=== PATIENT | male | born 1945 | race Caucasian/White ===

== ENCOUNTER 2016-12-26 15:24 | Emergency (ER) | payer MEDICARE, OTHER ==
[~2016-12-26] VITALS: Ht 172.7 cm; Wt 92.2 kg
[~2016-12-26 15:24] MED LIST: DIAZ5 PO; ESOM1CAP16 PO; METH750T2 PO; OXYC10TA8 PO; TERA2CAP3 PO
[2016-12-26 15:37] VITALS: BP 115/75; PULSE 74; RESP 16; TEMP 98.4; O2SAT 94
--- NOTE | 2016-12-26 16:05 | PD ---
HPI Chief Complaint: Fall Time Seen by Provider: 16:01 Travel History International Travel<30 days: No Contact w/Intl Traveler<30days: No Traveled to known affect area: No History of Present Illness HPI 71-year-old male with history of right total knee replacement presents to the ED for evaluation of 5/10 right knee pain. Onset approximately one hour ago when the patient lost his balance stepping off the curb and fell onto his right knee. States that during the course the fall he tried to catch himself with the right hand and sustained a few lacerations of the skin. He has been ambulatory since the accident. He was able to drive himself to the emergency room. He denies numbness, tingling, weakness or limitations to range of motion. He does state that flexion elicits pain. Patient states tetanus immunization is up-to-date. He declines pain medication. 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) Cardiovascular Problems: Yes Diminished Hearing: No Endocrine: No Gastrointestinal Disorders: Yes (BARRETTS ESPHAGITIS) Genitourinary: Yes (ENLARGED PROSTATE) Hepatitis: No Hiatal Hernia: Yes Hypertension: No Immune Disorder: No Inguinal Hernia: Yes (x 5) Medical other: No Musculoskeletal: Yes (SEVERE NECK PAIN--DOES TRACTION ,ARTHRITIS) Psychiatric: No Reproductive: No Respiratory: Yes (BARRETTJaz) Influenza Vaccination: Yes Past Surgical History Abdominal Surgery: Yes (CHOLYCYSTECTOMY, 5 HERNIA SURGERIES) Body Medical Devices: MESH IN ABDOMEN Cardiac Surgery: No Cholecystectomy: Yes Ear Surgery: No Endocrine Surgery: No Eye Surgery: No Genitourinary Surgery: No Joint Replacement: Yes (RIGHT KNEE TKA) Neurologic Surgery: No Oral Surgery: No Thoracic Surgery: No Other Surgery: Yes (sigmoid) Social History Alcohol Use: No Tobacco Use: No (FORMER) Substance Use: No Allergies-Medications (Allergen,Severity, Reaction): Coded Allergies: Codeine (Verified Allergy, Severe, SOB, 12/26/16) SWEATING Reported Meds & Prescriptions Reported Meds & Active Scripts Active Reported Nexium (Esomeprazole DR) 40 Mg Capdr 40 Mg PO BID Oxycodone (Oxycodone HCl) 10 Mg Tab 10 Mg PO BID Terazosin (Terazosin HCl) 2 Mg Cap 8 Mg PO HS Review of Systems Except as stated in HPI: all other systems reviewed are Neg Physical Exam Narrative GENERAL: Well-nourished, well-developed white male in no acute distress.. SKIN: Focused skin assessment warm/dry. Right hand with 21-2 cm skin tears. HEAD: Normocephalic. EYES: No scleral icterus. No injection or drainage. NECK: Supple, trachea midline. No JVD or lymphadenopathy. CARDIOVASCULAR: Regular rate and rhythm without murmurs, gallops, or rubs. RESPIRATORY: Breath sounds equal bilaterally. No accessory muscle use. GASTROINTESTINAL: Abdomen soft, non-tender, nondistended. MUSCULOSKELETAL: No cyanosis, or edema. Focused right upper extremity exam: 2+ radial pulse. Chronic deformity and limited ROM of the fifth digit. Patient maintains full, active, painless range of motion of the other digits. Strong finger to thumb opposition. Sensation intact to light touch distally. Cap refill less than 2 seconds. Focused right lower extremity exam: 2+ DP pulse. Mild edema and tenderness to palpation of the anterior lateral aspect of the right knee. Patient is able to flex to 90 plus and straighten to 0. Veres/valgus stress testing elicits pain. Anterior drawer test elicits pain. Patient is able to flex and extend the ankle and wiggle the toes. Cap refill less than 2 seconds. Sensation intact to light touch distally. BACK: Nontender without obvious deformity. No CVA tenderness. Data Data Last Documented VS Vital Signs Date Time Temp Pulse Resp B/P Pulse Ox O2 Delivery O2 Flow Rate FiO2 12/26/16 15:37 98.4 74 16 115/75 94 Orders Knee, Complete (4vws) (12/26/16 15:54) Ice/Cold Pack (12/26/16 15:54) MDM Medical Decision Making Medical Screen Exam Complete: Yes Emergency Medical Condition: Yes Differential Diagnosis Skin tear versus abrasion versus laceration versus patellar fracture versus ligamentous injury versus musculoskeletal pain versus other Narrative Course 71-year-old male with history of right total knee replacement presents to the ED for evaluation of 5/10 right knee pain. Onset approximately one hour ago when the patient lost his balance stepping off the curb and fell onto his right knee. States that during the course the fall he tried to catch himself with the right hand and sustained a few lacerations of the skin. He has been ambulatory since the accident. He was able to drive himself to the emergency room. He denies numbness, tingling, weakness or limitations to range of motion. He does state that flexion elicits pain. Patient states tetanus immunization is up-to-date. He declines pain medication. Vitals reviewed. Physical exam reveals a white male in no acute distress. There are two 1 cm skin tears on the right hand. 2+ radial pulse. Chronic deformity and limited ROM of the fifth digit. Patient maintains full, active, painless range of motion of the other digits. Strong finger to thumb opposition. Sensation intact to light touch distally. Cap refill less than 2 seconds. Focused right lower extremity exam: 2+ DP pulse. Mild edema and tenderness to palpation of the anterior lateral aspect of the right knee. Patient is able to flex to 90 plus and straighten to 0. Veres/valgus stress testing elicits pain. Anterior drawer test elicits pain. Patient is able to flex and extend the ankle and wiggle the toes. Cap refill less than 2 seconds. Sensation intact to light touch distally. The patient's wounds were cleaned and dressed by the nursing staff. X-ray of the knee reveals no acute abnormality per radiology read. Patient was instructed to rest, ice, elevate the extremity, follow up with his orthopedist. He is instructed to monitor for signs of infection of the skin tears, return ad jaylon. He indicated understanding of instructions and is amenable to plan of care. He is stable and discharged home. Diagnosis Primary Impression: Musculoskeletal pain of right lower extremity Additional Impression: Skin tear of right hand without complication Qualified Code: S61.411A - Skin tear of right hand without complication, initial encounter Referrals: Orthopedist Patient Instructions: General Instructions, Musculoskeletal Pain (ED) Additional Instructions: Rest, ice, elevate the extremity. Apply ice no longer than 10-15 minutes per hour a few times a day. Take OTC ibuprofen or Tylenol as directed on the label for pain. Return to normal, gentle activity as tolerated. No running, climbing, jumping activities for the next few weeks. Follow up with orthopedist in one week. Return to the ED for any urgent or emergent medical condition. Disposition: 01 DISCHARGE HOME Condition: Stable Lilly Simpson Dec 26, 2016 16:05
[2016-12-26] MEDS ORDERED: OXYC-395 PO (16:07)
[2016-12-26] MEDS ORDERED: NEXI40CA PO (16:07)
[2016-12-26] MEDS ORDERED: TERA2CAP3 PO (16:07)
--- NOTE | 2016-12-26 17:06 | RADHPO ---
EXAM DATE/TIME: 12/26/2016 16:05 [facility] COMPARISON: No previous studies available for comparison. INDICATIONS : Fall, Complains of pain and swelling of right knee. MEDICAL HISTORY : None. SURGICAL HISTORY : Right total knee ENCOUNTER: Initial ACUITY: 1 day PAIN SCORE: 10/10 LOCATION: Right knee FINDINGS: 5 images of the right knee reveal a total knee prosthesis in good position. No fracture or dislocatio n observed. No joint effusion. Scattered calcified atherosclerotic plaque of the popliteal artery. CONCLUSION: No acute abnormality. Earnest Hagan Jr., MD on December 26, 2016 at 16:50 Board Certified Radiologist. This report was verified electronically.
[2016-12-26] MEDS ORDERED: ACETAMINOPHEN/HYDROcodone 325 MG/5 MG TAB PO ONE (17:45)
== END 2016-12-26 18:14 | disposition home or self-care (01) ==
LOC: PHEFT 15:24
DX: M25.561 Pain in right knee (principal); M79.1 Myalgia; S61.411A Laceration without foreign body of right hand, initial encounter; W10.1XXA Fall (on)(from) sidewalk curb, initial encounter
CPT/HCPCS: 73564; 99283

== ENCOUNTER → 2017-02-07 | Outpatient (CLI) | payer MEDICARE, OTHER ==
[~2017-02-07] MED LIST changes: -DIAZ5 PO; -ESOM1CAP16 PO; -METH750T2 PO; +NEXI40CA PO; +OXYC-395 PO; -OXYC10TA8 PO
[2017-02-07 09:16] LABS: AUTOMATED NEUTROPHIL # 2.9 TH/MM3 (1.8-7.7); BASOPHIL % 0.5 % (0.0-2.0); EOSINOPHIL # 0.2 TH/MM3 (0-0.4); EOSINOPHIL % 4.5 % (0.0-4.0); HEMATOCRIT 42.2 % (39.0-51.0); HEMO FLAGS DIFF FINAL; LYMPH % 29.4 % (9.0-44.0); LYMPHOCYTE # 1.6 TH/MM3 (1.0-4.8); MEAN CORPUSCULAR HEMOGLOBIN 29.7 PG (27.0-34.0); MONO % 11.4 % (0.0-8.0); NEUT % 54.2 % (16.0-70.0); PLATELET COUNT 156 TH/MM3 (150-450); RED BLOOD COUNT 4.68 MIL/MM3 (4.50-5.90); RED CELL DISTRIBUTION WIDTH 13.4 % (11.6-17.2); WHITE BLOOD COUNT 5.4 TH/MM3 (4.0-11.0)
== END ==
LOC: PLAB 07:34
PROVIDERS: ATTEND Family Medicine
DX: L03.119 Cellulitis of unspecified part of limb (principal)
CPT/HCPCS: 36415; 85025

== ENCOUNTER → 2017-03-17 | Outpatient (CLI) | payer MEDICARE, OTHER ==
[2017-03-17 09:29] LABS: ANION GAP 8 MEQ/L (5-15); BLOOD UREA NITROGEN 11 MG/DL (7-18); CHLORIDE 107 MEQ/L (98-107); GLOMERULAR FILTRATION RATE 87 ML/MIN (>89); GLUCOSE,FASTING 102 MG/DL (74-99); POTASSIUM 4.2 MEQ/L (3.5-5.1); SODIUM (NA) 141 MEQ/L (136-145)
[2017-03-17 16:34] LABS: HEMOGLOBIN A1a 0.8 %; HEMOGLOBIN A1b 1.7 %; HEMOGLOBIN LA1C 1.7 %; HEMOGLOBIN P3 3.4 %
== END ==
LOC: PLAB 06:54
PROVIDERS: ATTEND Family Medicine
DX: R73.09 Other abnormal glucose (principal)
CPT/HCPCS: 36415; 80048; 83036

== ENCOUNTER → 2017-03-26 | Outpatient (CLI) | payer MEDICARE, OTHER ==
[2017-03-26 09:40] LABS: AUTOMATED NEUTROPHIL # 4.5 TH/MM3 (1.8-7.7); BASOPHIL % 0.7 % (0.0-2.0); EOSINOPHIL # 0.1 TH/MM3 (0-0.4); EOSINOPHIL % 1.4 % (0.0-4.0); HEMATOCRIT 45.9 % (39.0-51.0); HEMO FLAGS DIFF FINAL; LYMPH % 20.9 % (9.0-44.0); LYMPHOCYTE # 1.3 TH/MM3 (1.0-4.8); MEAN CELL VOLUME 90.9 FL (80.0-100.0); MEAN CORPUSCULAR HEMOGLOBIN 29.6 PG (27.0-34.0); MEAN CORPUSCULAR HGB CONC 32.5 % (32.0-36.0); MONO % 6.8 % (0.0-8.0); NEUT % 70.2 % (16.0-70.0); PLATELET COUNT 183 TH/MM3 (150-450); RED BLOOD COUNT 5.04 MIL/MM3 (4.50-5.90); RED CELL DISTRIBUTION WIDTH 13.8 % (11.6-17.2); WHITE BLOOD COUNT 6.3 TH/MM3 (4.0-11.0)
[2017-03-26 09:45] LABS: BLOOD, URINE NEG (NEG); COMMENT (UR) CULT NOT INDICATED; CULTURE IF INDICATED CULT NOT INDICATED; GLUCOSE,URINE NEG (NEG); KETONE, URINE NEG (NEG); MUCUS URINE FEW /lpf (OCC); NITRITE,URINE NEG (NEG); PH, URINE 6.5 (5.0-8.5); URINE COLOR YELLOW (YELLW/STRAW)
[2017-03-26 10:13] LABS: ALT (GPT) 31 U/L (12-78); ANION GAP 7 MEQ/L (5-15); AST (GOT) 30 U/L (15-37); BICARBONATE 28.2 MEQ/L (21.0-32.0); BLOOD UREA NITROGEN 14 MG/DL (7-18); CHLORIDE 107 MEQ/L (98-107); GLOMERULAR FILTRATION RATE 84 ML/MIN (>89); GLUCOSE,FASTING 99 MG/DL (74-99); POTASSIUM 4.2 MEQ/L (3.5-5.1); SODIUM (NA) 142 MEQ/L (136-145)
[2017-03-26 10:23] LABS: ALKALINE PHOSPHATASE 104 U/L (45-117); HDL CHOLESTEROL 68.9 MG/DL (40.0-60.0); LDL CHOLESTEROL 105 MG/DL (0-99); TOTAL BILIRUBIN ADULT 0.7 MG/DL (0.2-1.0)
== END ==
LOC: PLAB 06:52
PROVIDERS: ATTEND Family Medicine
DX: K21.0 Gastro-esophageal reflux disease with esophagitis (principal); E78.2 Mixed hyperlipidemia; F41.8 Other specified anxiety disorders; R53.83 Other fatigue; N40.0 Benign prostatic hyperplasia without lower urinary tract symptoms; Z12.12 Encounter for screening for malignant neoplasm of rectum
CPT/HCPCS: 36415; 80053; 80061; 81001; 84153; 84443; 85025

== ENCOUNTER → 2017-12-03 | Outpatient (CLI) | payer MEDICARE, OTHER | LOC: PLAB 11:21 | PROVIDERS: ATTEND Family Medicine | DX: Z00.5 Encounter for examination of potential donor of organ and tissue (principal) | CPT/HCPCS: 36415; 86850; 86900; 86901 ==

== ENCOUNTER → 2018-02-02 | Outpatient (CLI) | payer MEDICARE, OTHER ==
[2018-02-02 10:17] LABS: AUTOMATED NEUTROPHIL # 3.7 TH/MM3 (1.8-7.7); BASOPHIL % 0.3 % (0.0-2.0); EOSINOPHIL # 0.2 TH/MM3 (0-0.4); EOSINOPHIL % 2.6 % (0.0-4.0); HEMATOCRIT 46.5 % (39.0-51.0); HEMO FLAGS DIFF FINAL; HEMOGLOBIN 15.8 GM/DL (13.0-17.0); LYMPH % 28.4 % (9.0-44.0); LYMPHOCYTE # 1.7 TH/MM3 (1.0-4.8); MEAN CELL VOLUME 91.2 FL (80.0-100.0); MEAN CORPUSCULAR HEMOGLOBIN 30.9 PG (27.0-34.0); MEAN CORPUSCULAR HGB CONC 33.9 % (32.0-36.0); MEAN PLATELET VOLUME 8.4 FL (7.0-11.0); MONO % 8.2 % (0.0-8.0); MONOCYTE # 0.5 TH/MM3 (0-0.9); NEUT % 60.5 % (16.0-70.0); PLATELET COUNT 177 TH/MM3 (150-450); RED CELL DISTRIBUTION WIDTH 13.2 % (11.6-17.2)
[2018-02-02 10:27] LABS: ALBUMIN 3.7 GM/DL (3.4-5.0); ALT (GPT) 32 U/L (12-78); ANION GAP 5 MEQ/L (5-15); AST (GOT) 29 U/L (15-37); BICARBONATE 31.7 MEQ/L (21.0-32.0); BLOOD UREA NITROGEN 13 MG/DL (7-18); CALCIUM 8.6 MG/DL (8.5-10.1); CHLORIDE 107 MEQ/L (98-107); CHOLESTEROL 177 MG/DL (120-200); CREATININE 1.08 MG/DL (0.60-1.30); GLOMERULAR FILTRATION RATE 67 ML/MIN (>89); GLUCOSE,FASTING 93 MG/DL (74-99); POTASSIUM 4.5 MEQ/L (3.5-5.1); SODIUM (NA) 144 MEQ/L (136-145); TRIGLYCERIDES 95 MG/DL (42-150)
[2018-02-02 10:29] LABS: ALKALINE PHOSPHATASE 96 U/L (45-117); CHOLESTEROL/ HDL RATIO 3.02 RATIO; HDL CHOLESTEROL 58.6 MG/DL (40.0-60.0); LDL CHOLESTEROL 99 MG/DL (0-99); TOTAL BILIRUBIN ADULT 0.5 MG/DL (0.2-1.0); TOTAL PROTEIN 7.1 GM/DL (6.4-8.2)
[2018-02-02 16:19] LABS: HEMOGLOBIN A1C 5.6 % (4.3-6.0); HEMOGLOBIN A1a 0.9 %; HEMOGLOBIN A1b 1.7 %; HEMOGLOBIN Ao 85.8 %; HEMOGLOBIN LA1C 1.8 %; HEMOGLOBIN P3 3.4 %
== END ==
LOC: PLAB 07:51
DX: Z00.00 Encounter for general adult medical examination without abnormal findings (principal); R73.09 Other abnormal glucose; E78.2 Mixed hyperlipidemia
CPT/HCPCS: 36415; 80053; 80061; 83036; 85025

== ENCOUNTER 2018-03-17 08:27 | Emergency (ER) | payer MEDICARE, OTHER ==
[~2018-03-17] VITALS: Ht 172.7 cm; Wt 96.0 kg
[2018-03-17 08:31] VITALS: BP 136/66; PULSE 75; RESP 16; TEMP 97.5; O2SAT 97
--- NOTE | 2018-03-17 09:38 | RADRPT ---
EXAM DATE: 03/17/2018 9:30 AM EDT AGE/SEX: 73 years / Male INDICATIONS: Fall on to right knee with swelling under patella. CLINICAL DATA: This is the patient's initial encounter. Patient reports that signs and symptoms have been present for 1 day and indicates a pain score of 3/10. MEDICAL/SURGICAL HISTORY: . Edema. Total knee replacement, right. COMPARISON: HPO, KNEE RIGHT COMPLETE (4VWS), 12/26/2016. . FINDINGS: Bony structures are intact and in normal alignment. There continues to be a right knee prosthesis in place. The hardware is grossly intact. There is no evidence of joint effusion. Compared to the prior study has been no significant changes. Vascular calcifications are again noted in the soft tissues. CONCLUSION: No acute fracture or joint dislocation. Stable examination. Electronically signed by: Marty Galvan MD 03/17/2018 9:37 AM EDT
--- NOTE | 2018-03-17 09:50 | PD ---
HPI Chief Complaint: Injury Time Seen by Provider: 08:48 Travel History International Travel<30 days: No Contact w/Intl Traveler<30days: No Traveled to known affect area: No History of Present Illness HPI 73-year-old male presented ER for evaluation of right knee injury. Patient fell and hurt his right knee and is here for further evaluation. Patient has artificial knee and is warranted could be misplaced. Patient was able to walk after the injury and has no pain on his knee. No open wounds, no edema or leg swelling or fever or chills. 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) Cardiovascular Problems: Yes Diminished Hearing: No Endocrine: No Gastrointestinal Disorders: Yes (BARRETTS ESPHAGITIS) Genitourinary: Yes (ENLARGED PROSTATE) Hepatitis: No Hiatal Hernia: Yes Hypertension: No Immune Disorder: No Inguinal Hernia: Yes (x 5) Medical other: No Musculoskeletal: Yes (SEVERE NECK PAIN--DOES TRACTION ,ARTHRITIS) Psychiatric: No Reproductive: No Respiratory: Yes (BARRETTS) Influenza Vaccination: No Past Surgical History Abdominal Surgery: Yes (CHOLYCYSTECTOMY, 5 HERNIA SURGERIES) Body Medical Devices: MESH IN ABDOMEN Cardiac Surgery: No Cholecystectomy: Yes Ear Surgery: No Endocrine Surgery: No Eye Surgery: No Genitourinary Surgery: No Joint Replacement: Yes (RIGHT KNEE TKA) Neurologic Surgery: No Oral Surgery: No Thoracic Surgery: No Other Surgery: Yes (sigmoid) Social History Alcohol Use: No Tobacco Use: No (FORMER) Substance Use: No Allergies-Medications (Allergen,Severity, Reaction): Coded Allergies: codeine (Unverified Allergy, Severe, SOB, 03/17/18) SWEATING Reported Meds & Prescriptions Reported Meds & Active Scripts Active Reported Nexium (Esomeprazole DR) 40 Mg Capdr 40 Mg PO BID Oxycodone (Oxycodone HCl) 10 Mg Tab 10 Mg PO BID Terazosin (Terazosin HCl) 2 Mg Cap 8 Mg PO HS Review of Systems Except as stated in HPI: all other systems reviewed are Neg Physical Exam Narrative GENERAL: Well-nourished, well-developed patient. SKIN: Focused skin assessment warm/dry. HEAD: Normocephalic. EYES: No scleral icterus. No injection or drainage. NECK: Supple, trachea midline. No JVD or lymphadenopathy. CARDIOVASCULAR: Regular rate and rhythm without murmurs, gallops, or rubs. RESPIRATORY: Breath sounds equal bilaterally. No accessory muscle use. GASTROINTESTINAL: Abdomen soft, non-tender, nondistended. MUSCULOSKELETAL: No cyanosis, or edema. BACK: Nontender without obvious deformity. No CVA tenderness. Data Data Last Documented VS Vital Signs Date Time Temp Pulse Resp B/P (MAP) Pulse Ox O2 Delivery O2 Flow Rate FiO2 03/17/18 08:47 Room Air 03/17/18 08:31 97.5 75 16 136/66 (89) 97 Orders Orders Knee, Complete (4vws) (03/17/18 ) Ed Discharge Order (03/17/18 09:47) [facility] Medical Decision Making Medical Screen Exam Complete: Yes Emergency Medical Condition: Yes Differential Diagnosis Fracture, dislocation, soft tissue swelling, lock assembler failure. Narrative Course Last 24 hours Impressions Knee X-Ray 03/17/18 0000 Signed Impressions: CONCLUSION: No acute fracture or joint dislocation. Stable examination. 73-year-old male here for evaluation of right knee injury. Patient has no pain , no gait problems, physical examination is unremarkable, vitals are stable patient is not in any pain. X-ray is negative for any acute findings. Patient stable to be discharged to follow-up with his primary care physician. I discussed with the patient that if her symptoms change or not improve to come to the ER for further evaluation. Patient understands and agrees to plan of care. Diagnosis Primary Impression: Right knee injury Qualified Codes: S89.91XA - Unspecified injury of right lower leg, initial encounter Additional Instructions: Follow-up with primary care physician and return to your symptoms change or do not improve. Disposition: 01 DISCHARGE HOME Condition: Stable Crispin Briceno MD Mar 17, 2018 09:50
[2018-03-17] MEDS ORDERED: RANI300T PO (16:04)
== END 2018-03-17 10:07 | disposition home or self-care (01) ==
LOC: PHED 08:27
DX: S89.91XA Unspecified injury of right lower leg, initial encounter (principal); W19.XXXA Unspecified fall, initial encounter; M19.90 Unspecified osteoarthritis, unspecified site; N40.0 Benign prostatic hyperplasia without lower urinary tract symptoms; Z96.651 Presence of right artificial knee joint; Z85.820 Personal history of malignant melanoma of skin; Z88.5 Allergy status to narcotic agent; M79.661 Pain in right lower leg; K22.70 Barrett's esophagus without dysplasia; K44.9 Diaphragmatic hernia without obstruction or gangrene; Z86.718 Personal history of other venous thrombosis and embolism; Z79.899 Other long term (current) drug therapy
CPT/HCPCS: 73564; 99283

== ENCOUNTER 2018-03-17 15:20 | Emergency (ER) | payer MEDICARE, OTHER ==
[~2018-03-17] VITALS: Ht 172.7 cm; Wt 96.5 kg
[2018-03-17 15:28] VITALS: BP 124/62; PULSE 67; RESP 16; TEMP 98.1; O2SAT 93
--- NOTE | 2018-03-17 15:56 | PD ---
HPI Chief Complaint: Pain: Acute or Chronic Time Seen by Provider: 15:38 Travel History International Travel<30 days: No Contact w/Intl Traveler<30days: No Traveled to known affect area: No History of Present Illness HPI 73-year-old male presents to the emergency department for evaluation of right leg pain. Patient was seen earlier this morning after a right knee injury. He had x-ray completed which was negative for acute injury. However, he states that he does have a history DVT and he is now having some posterior knee and calf pain. He states that he is scheduled to have a procedure done tomorrow on his esophagus and would like to be checked for a DVT. Patient states that he was on Pradaxa for approximately 3 months after his previous DVT, but is no longer on anticoagulants. Patient states the pain is 1/10 with sitting, 4/10 with ambulation. No other symptoms or complaints at this time. Mild severity. Patient reports chronic lower extremity edema. He states that the edema is always worse in his right leg due to having a vein removed previously. 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) Cardiovascular Problems: Yes Diminished Hearing: No Endocrine: No Gastrointestinal Disorders: Yes (BARRETTS ESPHAGITIS) Genitourinary: Yes (ENLARGED PROSTATE) Hepatitis: No Hiatal Hernia: Yes Hypertension: No Immune Disorder: No Inguinal Hernia: Yes (x 5) Musculoskeletal: Yes (SEVERE NECK PAIN--DOES TRACTION ,ARTHRITIS) Psychiatric: No Reproductive: No Respiratory: Yes (BARRETTS) ?: Not Past Surgical History Abdominal Surgery: Yes (CHOLYCYSTECTOMY, 5 HERNIA SURGERIES) Body Medical Devices: MESH IN ABDOMEN Cardiac Surgery: No Cholecystectomy: Yes Ear Surgery: No Endocrine Surgery: No Eye Surgery: No Genitourinary Surgery: No Joint Replacement: Yes (RIGHT KNEE TKA) Neurologic Surgery: No Oral Surgery: No Thoracic Surgery: No Other Surgery: Yes (sigmoid) Social History Alcohol Use: No Tobacco Use: No (FORMER) Substance Use: No Allergies-Medications (Allergen,Severity, Reaction): Coded Allergies: codeine (Unverified Allergy, Severe, SOB, 03/17/18) SWEATING Reported Meds & Prescriptions Reported Meds & Active Scripts Active Reported Ranitidine (Ranitidine HCl) 300 Mg Tab 300 Mg PO HS Nexium (Esomeprazole DR) 40 Mg Capdr 40 Mg PO BID Oxycodone (Oxycodone HCl) 10 Mg Tab 10 Mg PO BID Terazosin (Terazosin HCl) 2 Mg Cap 8 Mg PO HS Review of Systems Except as stated in HPI: all other systems reviewed are Neg Physical Exam Narrative GENERAL: Well-nourished, well-developed male patient, afebrile. SKIN: Focused skin assessment warm/dry. HEAD: Normocephalic. Atraumatic. EYES: No scleral icterus. No injection or drainage. NECK: Supple, trachea midline. No JVD or lymphadenopathy. CARDIOVASCULAR: Regular rate and rhythm without murmurs, gallops, or rubs. Right pedal pulse is 2+. RESPIRATORY: Breath sounds equal bilaterally. No accessory muscle use. Lung sounds are clear to auscultation. GASTROINTESTINAL: Abdomen soft, non-tender, nondistended. MUSCULOSKELETAL: No cyanosis, or edema. Patient has some mild tenderness to palpation of the right posterior calf. BACK: Nontender without obvious deformity. No CVA tenderness. Data Data Last Documented VS Vital Signs Date Time Temp Pulse Resp B/P (MAP) Pulse Ox O2 Delivery O2 Flow Rate FiO2 03/17/18 16:00 18 03/17/18 15:28 98.1 67 124/62 (82) 93 Orders Orders Us Leg Venous Doppler (03/17/18 ) MDM Medical Decision Making Medical Screen Exam Complete: Yes Emergency Medical Condition: Yes Medical Record Reviewed: Yes Interpretation(s) Last Impressions Lower Extremity Ultrasound 03/17/18 0000 Signed Impressions: CONCLUSION: 1. The study is negative for lower extremity deep venous thrombosis. Differential Diagnosis Muscle strain versus DVT versus muscle spasm Narrative Course 73-year-old male presents to the emergency department for evaluation of right calf pain with history of DVT. Venous Doppler ultrasound of the right lower extremity is ordered and pending. US is negative for DVT Patient is instructed to follow up with his primary care physician. He is return here for any acute worsening of symptoms. Diagnosis Primary Impression: Musculoskeletal pain of right lower extremity Referrals: Primary Care Physician call for appointment Patient Instructions: General Instructions, Leg Pain (ED) Additional Instructions: Ice for 20 minutes 4-5 times daily. Follow-up with a primary care physician. Return to the emergency department for any acute worsening of symptoms. Med/Other Pt SpecificInfo: No Change to Meds Disposition: 01 DISCHARGE HOME Condition: Stable Edvin,Tierra STAFF THERAPIST Mar 17, 2018 15:56
[2018-03-17] MEDS ORDERED: RANI300T PO (16:04)
--- NOTE | 2018-03-17 17:33 | RADRPT ---
EXAM DATE: 03/17/2018 5:26 PM EDT AGE/SEX: 73 years / Male INDICATIONS: Right leg pain. Prior right knee replacement. Fall onto right knee. CLINICAL DATA: This is the patient's initial encounter. Patient reports that signs and symptoms have been present for 1 day and indicates a pain score of 7/10. MEDICAL/SURGICAL HISTORY: . Emanuel's Esophagus. Hiatal hernia. Inguinal hernia. Enlarged prost ate. Cholecystectomy. Inguinal hernia repair. Total knee replacement, right. Right hip replacemen t. COMPARISON: No prior exams available for comparison. TECHNIQUE: Venous ultrasound of both lower extremities was performed from the inguinal ligament to t he proximal calf. Real-time, color Doppler and spectral tracing, compression and augmentation techni ques were used. FINDINGS: There is normal compressibility of the deep venous system from the inguinal region to the proximal calf. No echogenic clot is seen in the lumen of the common femoral, femoral, popliteal, and posterior tibial veins. There is a normal response of the venous system to proximal and distal augm entation and respiration. CONCLUSION: 1. The study is negative for lower extremity deep venous thrombosis. Electronically signed by: Milan Berrios MD 03/17/2018 5:31 PM EDT
[2018-03-17 18:13] VITALS: BP 139/83
== END 2018-03-17 18:14 | disposition home or self-care (01) ==
LOC: PHEFT 15:20
DX: M79.661 Pain in right lower leg (principal); K22.70 Barrett's esophagus without dysplasia; K44.9 Diaphragmatic hernia without obstruction or gangrene; M19.90 Unspecified osteoarthritis, unspecified site; N40.0 Benign prostatic hyperplasia without lower urinary tract symptoms; Z86.718 Personal history of other venous thrombosis and embolism; Z85.820 Personal history of malignant melanoma of skin; Z96.651 Presence of right artificial knee joint; Z88.5 Allergy status to narcotic agent; Z79.899 Other long term (current) drug therapy
CPT/HCPCS: 93971